=== PATIENT | male | born 1960 | race American Indian/Alaskan Native ===

== ENCOUNTER 2019-03-26 12:59 | Emergency (ER) | payer SELFPAY ==
[2019-03-26 13:26] VITALS: BP 123/83; PULSE 61; RESP 20; TEMP 97.6; O2SAT 99
--- NOTE | 2019-03-26 14:37 | C.PDOC ---
History Of Present Illness 58 y/o male brought in by EMS after he was found sleeping on bench in [place]. Patient states that he was drinking " a little." Patient denies having suicidal ideation,homicidal ideation, and active physical complaints. Time Seen by Provider: 03/26/19 13:47 Chief Complaint (Nursing): Substance Abuse History Per: Patient History/Exam Limitations: no limitations Past Medical History Reviewed: Historical Data, Nursing Documentation, Vital Signs Vital Signs: Last Vital Signs Temp 97.6 F 03/26/19 13:26 Pulse 61 03/26/19 13:26 Resp 20 03/26/19 13:26 BP 123/83 03/26/19 13:26 Pulse Ox 99 03/26/19 13:26 Primary Care Provider: Non [facility] Provider, - Medical History PMH: No Chronic Diseases Surgical History: No Surg Hx Family History: States: No Known Family Hx - Social History Hx Alcohol Use: Yes Hx Substance Use: Yes - Immunization History Hx Tetanus Toxoid Vaccination: No Hx Influenza Vaccination: No Hx Pneumococcal Vaccination: No Review Of Systems Constitutional: Negative for: Fever, Chills Psych: Negative for: Suicidal ideation Physical Exam - Physical Exam Appears: No Acute Distress, Other (awake,alert) Skin: Normal Color, Warm, Dry Head: Atraumatic, Normacephalic Eye(s): bilateral: Normal Inspection Nose: Normal Oral Mucosa: Moist Neck: Supple Chest: Symmetrical Cardiovascular: Rhythm Regular Respiratory: Normal Breath Sounds, No Rales, No Rhonchi, No Wheezing Gastrointestinal/Abdominal: Normal Exam, Soft, No Tenderness, No Guarding, No Rebound Neurological/Psych: Oriented x3, Normal Speech ED Course And Treatment O2 Sat by Pulse Oximetry: 99 (RA) Pulse Ox Interpretation: Normal Progress Note: 3:20 Patient sleeping quietly. Arousable but still with slured speech. Disposition - Disposition Disposition: HOME/ ROUTINE Disposition Time: 20:10 Condition: IMPROVED Forms: [facility] (T[place]ik) - Clinical Impression Clinical Impression: Alcohol intoxication - Scribe Statement The provider has reviewed the documentation as recorded by the Yelenaibkiara Olivo Provider Attestation: All medical record entries made by the Scribe were at my direction and personally dictated by me. I have reviewed the chart and agree that the record accurately reflects my personal performance of the history, physical exam, medical decision making, and the department course for this patient. I have also personally directed, reviewed, and agree with the discharge instructions and disposition.
== END 2019-03-26 20:08 | disposition home or self-care (01) ==
LOC: C.ER 12:59
DX: F10.129 Alcohol abuse with intoxication, unspecified (principal); Y90.9 Presence of alcohol in blood, level not specified